=== PATIENT | female | born 1960 | race Caucasian/White ===

== ENCOUNTER → 2021-12-03 | Outpatient (REF) ==
[2021-12-03 11:05] LABS: APPEARANCE, URINE CLEAR (CLEAR); BACTERIA, URINE AUTO NEGATIVE (NEGATIVE); BILIRUBIN, URINE AUTO NEGATIVE (NEGATIVE); BLOOD, URINE BLOOD NEGATIVE (NEGATIVE); COLOR, URINE YELLOW (YELLOW); GLUCOSE, URINE (UA) AUTO NEGATIVE (NEGATIVE); KETONE, URINE AUTO NEGATIVE (NEGATIVE); LEUKOCYTE ESTERASE, URINE AUTO NEGATIVE (NEGATIVE); NITRITE, URINE AUTO NEGATIVE (NEGATIVE); PROTEIN, URINE AUTO NEGATIVE (NEGATIVE); RBC, URINE AUTO 1 /HPF (0-3); SPECIFIC GRAVITY URINE AUTO 1.014 (1.002-1.035); SQUAMOUS EPITHELIAL CELL UR AU 3 /HPF (0-6); UROBILINOGEN, URINE AUTO 0.2 mg/dL (0.0-2.0); WBC, URINE AUTO 2 /HPF (0-3)
== END ==
LOC: SKLAB7 08:26
PROVIDERS: ATTEND Neuromusculoskeletal Medicine & OMM
DX: T50.995A Adverse effect of other drugs, medicaments and biological substances, initial encounter (principal)

== ENCOUNTER → 2021-12-06 | Outpatient (REF) | payer OTHER, MEDICAID ==
[2021-12-06 11:18] LABS: HEMATOCRIT 34.2 % (36.0-47.0); HEMOGLOBIN 10.6 g/dl (12.0-15.5); MEAN CORPUSCULAR HEMOGLOBIN 25.7 pg (27.0-33.0); MEAN CORPUSCULAR VOLUME 82.8 fl (80.0-96.0); PLATELET COUNT, AUTOMATED 172 10^3/uL (150-450); RED BLOOD COUNT 4.13 10^6/uL (4.00-5.40); WHITE BLOOD COUNT 8.9 10^3/uL (4.0-10.0)
[2021-12-06 11:37] LABS: HEMOGLOBIN A1c 5.7 %
[2021-12-06 11:56] LABS: ALBUMIN 3.3 GM/DL (3.2-5.2); ALT/SGPT 39 U/L (12-78); BILIRUBIN,TOTAL 0.8 MG/DL (0.2-1.0); BLOOD UREA NITROGEN 36 MG/DL (7-18); CALCIUM LEVEL 8.8 MG/DL (8.8-10.2); CARBON DIOXIDE LEVEL 38 MEQ/L (21-32); CHLORIDE LEVEL 101 MEQ/L (98-107); CHOLESTEROL LEVEL 166 MG/DL (<200); CHOLESTEROL RISK RATIO 2.813 (<5); CREATININE FOR GFR 0.69 MG/DL (0.55-1.30); GLOMERULAR FILTRATION RATE > 60.0 (>45); GLUCOSE, FASTING 98 MG/DL (70-100); HDL CHOLESTEROL 59 MG/DL (>40); LDL CHOLESTEROL 92 MG/DL (<100); NON-HDL-C 107 MG/DL; POTASSIUM SERUM 3.9 MEQ/L (3.5-5.1); SODIUM LEVEL 141 MEQ/L (136-145); TOTAL PROTEIN 6.4 GM/DL (6.4-8.2); TRIGLYCERIDES LEVEL 74 MG/DL (<150)
== END ==
LOC: SKLAB7 07:10
PROVIDERS: ATTEND Neuromusculoskeletal Medicine & OMM
DX: Z79.01 Long term (current) use of anticoagulants (principal); I10 Essential (primary) hypertension

== ENCOUNTER → 2021-12-08 | Outpatient (REF) | LOC: SKLAB7 07:00 | PROVIDERS: ATTEND Neuromusculoskeletal Medicine & OMM | DX: D64.9 Anemia, unspecified (principal) ==

== ENCOUNTER → 2021-12-09 | Outpatient (REF) | LOC: SKLAB7 11:21 | PROVIDERS: ATTEND Neuromusculoskeletal Medicine & OMM | DX: R06.02 Shortness of breath (principal); R60.9 Edema, unspecified ==

== ENCOUNTER → 2021-12-10 | Outpatient (REF) | LOC: SKLAB7 10:33 | PROVIDERS: ATTEND Neuromusculoskeletal Medicine & OMM | DX: D64.9 Anemia, unspecified (principal) ==

== ENCOUNTER → 2021-12-13 | Outpatient (REF) | LOC: SKLAB7 10:58 | PROVIDERS: ATTEND Neuromusculoskeletal Medicine & OMM | DX: D64.9 Anemia, unspecified (principal) ==

== ENCOUNTER → 2021-12-14 | Outpatient (REF) ==
[2021-12-14 11:23] LABS: CALCIUM LEVEL 8.8 MG/DL (8.8-10.2); CREATININE FOR GFR 1.2 MG/DL (0.55-1.30); GLOMERULAR FILTRATION RATE 48.5 (>45); POTASSIUM SERUM 3.3 MEQ/L (3.5-5.1)
== END ==
LOC: SKLAB7 07:00
PROVIDERS: ATTEND Neuromusculoskeletal Medicine & OMM
DX: R60.9 Edema, unspecified (principal)

== ENCOUNTER → 2021-12-23 | Outpatient (REF) ==
[2021-12-23 11:57] LABS: HEMOGLOBIN 10.2 g/dl (12.0-15.5); MEAN CORPUSCULAR HEMOGLOBIN 25.9 pg (27.0-33.0); MEAN CORPUSCULAR HGB CONC 30.9 g/dl (32.0-36.5); MEAN CORPUSCULAR VOLUME 83.8 fl (80.0-96.0); PLATELET COUNT, AUTOMATED 179 10^3/uL (150-450); RED BLOOD COUNT 3.94 10^6/uL (4.00-5.40); WHITE BLOOD COUNT 8.1 10^3/uL (4.0-10.0)
[2021-12-23 12:26] LABS: BLOOD UREA NITROGEN 53 MG/DL (7-18); CALCIUM LEVEL 9.5 MG/DL (8.8-10.2); CARBON DIOXIDE LEVEL 36 MEQ/L (21-32); CHLORIDE LEVEL 99 MEQ/L (98-107); CREATININE FOR GFR 0.82 MG/DL (0.55-1.30); GLOMERULAR FILTRATION RATE > 60.0 (>45); GLUCOSE, FASTING 91 MG/DL (70-100); POTASSIUM SERUM 3.8 MEQ/L (3.5-5.1); SODIUM LEVEL 142 MEQ/L (136-145)
== END ==
LOC: SKLAB7 07:00
PROVIDERS: ATTEND Neuromusculoskeletal Medicine & OMM
DX: E87.6 Hypokalemia (principal)